=== PATIENT | female | born 1935 ===

== ENCOUNTER 2018-09-29 13:02 | Emergency (ER) | payer MEDICARE ==
[2018-09-29 13:08] VITALS: BMI 22.6
[2018-09-29 13:10] VITALS: TEMP 98.4; O2SAT 97
--- NOTE | 2018-09-29 13:35 | C.PDOC ---
History Of Present Illness 83 y/o female,w/PMhx of HTN ,presents to the ER for elevated blood pressure levels.Patient states that she checked her blood pressure at home and her systolic blood pressure was 190. Patient reports that she called her PMD who advised her to come to the ER.Denies having fever,chills, headache, dizziness, CP,SOB, nausea, and vomiting. Time Seen by Provider: 09/29/18 13:08 Chief Complaint (Nursing): High Blood Pressure History Per: Patient History/Exam Limitations: no limitations Past Medical History Reviewed: Historical Data, Nursing Documentation, Vital Signs Vital Signs: Last Vital Signs Temp 98.4 F 09/29/18 13:10 Pulse 71 09/29/18 13:10 Resp 18 09/29/18 13:10 BP 183/81 H 09/29/18 13:10 Pulse Ox 97 09/29/18 13:10 Primary Care Provider: Be Gaitan - Medical History PMH: HTN Denies: Chronic Kidney Disease Surgical History: No Surg Hx Family History: States: No Known Family Hx - Social History Hx Alcohol Use: No Hx Substance Use: No Review Of Systems Except As Marked, All Systems Reviewed And Found Negative. Constitutional: Negative for: Fever, Chills Cardiovascular: Negative for: Chest Pain Respiratory: Negative for: Shortness of Breath Gastrointestinal: Negative for: Nausea, Vomiting, Abdominal Pain Physical Exam - Physical Exam Appears: Other (anxious) Skin: Normal Color, Warm, Dry Head: Atraumatic, Normacephalic Eye(s): bilateral: Normal Inspection Nose: Normal Oral Mucosa: Moist Neck: Supple Chest: Symmetrical Cardiovascular: Rhythm Regular Respiratory: Normal Breath Sounds, No Rales, No Rhonchi, No Wheezing Gastrointestinal/Abdominal: Normal Exam, Soft, No Tenderness, No Guarding, No Rebound Neurological/Psych: Oriented x3, Normal Speech ED Course And Treatment - Laboratory Results Result Diagrams: 09/29/18 13:49 09/29/18 13:49 ECG: Interpreted By Me, Viewed By Me ECG Rhythm: Sinus Rhythm Interpretation Of ECG: NSR with no ST/T wave changes Rate From EC O2 Sat by Pulse Oximetry: 97 (RA) Pulse Ox Interpretation: Normal Medical Decision Making Medical Decision Making: Plan: --Labs --ECG --Hydralazine IV suspect essnetial htn ro urgency vs emergency. labs neg. b/p improve din er in nad. advise outpt fu. Disposition - Disposition Disposition: HOME/ ROUTINE Disposition Time: 15:00 Condition: STABLE Additional Instructions: return toe r with worsening. Instructions: High Blood Pressure in Adults Forms: [facility] (Wol[place]) - Clinical Impression Clinical Impression: HTN (hypertension) - Scribe Statement The provider has reviewed the documentation as recorded by the Maduhri Olivares Provider Attestation: All medical record entries made by the Madhuri were at my direction and personally dictated by me. I have reviewed the chart and agree that the record accurately reflects my personal performance of the history, physical exam, medical decision making, and the department course for this patient. I have also personally directed, reviewed, and agree with the discharge instructions and disposition.
[2018-09-29 13:57] VITALS: BP 157/77; PULSE 62; RESP 22
[2018-09-29 13:57] LABS: BASO # 0.1 K/uL (0.0-0.2); BASO % 1.5 % (0.0-2.0); EOS # 0.1 K/uL (0.0-0.7); EOS % 2.1 % (0.0-4.0); HEMOGLOBIN 11.8 g/dL (11.0-16.0); LYMPH # 1.1 K/uL (1.0-4.3); LYMPH % 17.5 % (20.0-40.0); MEAN CORPUSCULAR HGB CONC 34.4 g/dL (33.0-37.0); MEAN PLATELET VOLUME 7.9 fL (7.2-11.7); MONO # 0.6 K/uL (0.0-0.8); MONO % 9.4 % (0.0-10.0); NEUT # 4.5 K/uL (1.8-7.0); NEUT % 69.5 % (50.0-75.0); RBC 3.94 Mil/uL (3.80-5.20); RED CELL DISTRIBUTION WIDTH 14.2 % (11.5-14.5); WHITE BLOOD COUNT 6.4 K/uL (4.8-10.8)
[2018-09-29 14:05] LABS: INR 1.2; PARTIAL THROMBOPLASTIN TIME 34.4 SECONDS (21-34); PROTHROMBIN TIME 13.4 SECONDS (9.7-12.2)
[2018-09-29 14:12] LABS: ALB/GLOB RATIO 1.5 (1.0-2.1); ALBUMIN 4.2 g/dL (3.5-5.0); ALT/SGPT 20 U/L (9-52); AST/SGOT 22 U/L (14-36); BLOOD UREA NITROGEN 15 mg/dL (7-17); CALCIUM 9.6 mg/dl (8.6-10.4); GFR NON-AFRICAN AMERICAN 53
--- NOTE | 2018-09-30 11:59 | CARD ---
APPROVED REPORT Date of service: 09/29/2018 EKG Measurement Heart [id number] <Conclusion> Normal sinus rhythm Normal ECG
== END 2018-09-29 14:40 | disposition home or self-care (01) ==
LOC: C.ER 13:02
DX: I10 Essential (primary) hypertension (principal)
CPT/HCPCS: 80053; 84484; 85025; 85610; 85730; 93005; 96374; 99284; J0360